=== PATIENT | male | born 1990 | race Caucasian/White ===

== ENCOUNTER 2017-02-14 21:32 | Emergency (ER) | payer OTHER ==
[2017-02-14 22:44] LABS: PLATELET COUNT 210 x10^3mcL (130-400); RED CELL DISTRIBUTION WIDTH 12.2 % (11.5-14.5)
[2017-02-14 22:46] LABS: BASOPHIL % 0 % (0-2)
[2017-02-14 22:55] LABS: CARBON DIOXIDE 30.4 mmol/L (21-32); CHLORIDE SERUM 104 mmol/L (98-107); CREATININE SERUM 1.3 mg/dL (0.7-1.3); GFR1 > 60 mL/min; GLUCOSE SERUM 123 mg/dL (74-106); POTASSIUM SERUM 3.8 mmol/L (3.5-5.1); SODIUM SERUM 142 mmol/L (136-145)
[2017-02-14 23:00] LABS: ALBUMIN 4.2 g/dL (3.4-5.0); ALKALINE PHOSPHATASE 81 U/L (46-116); ALT/SGPT 46 U/L (16-63); AMYLASE 26 U/L (25-115); AST/SGOT 22 U/L (15-37); BILIRUBIN TOTAL 0.61 mg/dL (0.20-1.00); LIPASE 77 IU/L (73-393); TOTAL PROTEIN, SERUM 7.5 g/dL (6.4-8.2)
[2017-02-15 00:39] VITALS: BP 124/78
== END 2017-02-15 00:39 | disposition home or self-care (01) ==
LOC: ED 21:32
PROVIDERS: Emergency Medicine
DX: R10.30 Lower abdominal pain, unspecified (principal); F41.9 Anxiety disorder, unspecified; Z88.6 Allergy status to analgesic agent
CPT/HCPCS: 36415; 83880

== ENCOUNTER 2017-02-15 19:53 | Emergency (ER) | payer OTHER ==
[2017-02-15 19:55] VITALS: BP 116/68
== END 2017-02-16 00:56 | disposition left against medical advice (07) ==
LOC: ED 19:53
DX: R10.9 Unspecified abdominal pain (principal); Z53.21 Procedure and treatment not carried out due to patient leaving prior to being seen by health care provider

== ENCOUNTER 2018-07-25 18:33 | Emergency (ER) | payer OTHER ==
[~2018-07-25] VITALS: Ht 162.6 cm; Wt 95.3 kg
[2018-07-25 18:38] VITALS: Ht 162.6 cm; Wt 95.3 kg
[2018-07-25 20:51] VITALS: BP 136/82
== END 2018-07-25 20:51 | disposition home or self-care (01) ==
LOC: ED 18:33
DX: K60.2 Anal fissure, unspecified (principal); K59.00 Constipation, unspecified; F41.9 Anxiety disorder, unspecified; Z88.6 Allergy status to analgesic agent